=== PATIENT | male | born 1940 | race Caucasian/White ===

== ENCOUNTER 2021-06-01 10:21 | Inpatient (IN) | payer MEDICARE, OTHER ==
[~2021-06-01] VITALS: Ht 170.2 cm; Wt 60.3 kg
[2021-06-01 10:28] VITALS: BP 157/98
[2021-06-01] MEDS ORDERED: CHOLESTEROL PO (10:35)
[2021-06-01] MEDS ORDERED: [UNRECOGNIZED DRUG - OTHER] INH (10:36)
[2021-06-01 10:56] LABS: ABSOLUTE EOSINOPHILS 0.1 thou/uL (0.0-0.7); ABSOLUTE LYMPHOCYTES 1.6 thou/uL (0.8-5.3); ABSOLUTE MONOCYTES 0.6 thou/uL (0.0-1.2); ABSOLUTE NEUTROPHILS 4.1 thou/uL (1.6-8.1); BASOPHILS 0.3 %; EOSINOPHILS 1.2 %; HEMATOCRIT 49.8 % (42.0-52.0); HEMOGLOBIN 16.6 gm/dL (14.0-18.0); MCH 29.3 pg (26.0-34.0); MCHC 33.3 g/dL (28.0-37.0); MONOCYTES 9.3 %; MPV 8.7 fl. (7.2-11.1); NUCLEATED RBCS 0 /100WBC; PLATELET COUNT* 179 thou/uL (150-400); POLYS 64.2 %; RBC 5.65 mil/uL (4.50-6.00); RDW-CV 14.3 % (10.5-14.5); WBC 6.4 thou/uL (4.0-11.0)
[2021-06-01 11:05] LABS: CALCIUM 8.4 mg/dL (8.5-10.1); POTASSIUM 4.3 mmol/L (3.5-5.1)
[2021-06-01 11:17] LABS: ALBUMIN 3.5 g/dL (3.4-5.0); TOTAL BILIRUBIN 0.5 mg/dL (<0.1-1.0); TOTAL PROTEIN 7.6 g/dL (6.4-8.2)
--- NOTE | 2021-06-01 11:19 | EKG ---
[place] [address] ELECTROCARDIOGRAM REPORT Name: ALESSANDRA PATE Room: [facility]#: [id number] Admission: Attend Phys: Discharge: Date of : 38 Date of Service: 06/01/21 1055 Report #: [id number] THIS REPORT FOR: //name// [facility] ED Test Date: 2021-06-01 Test Time: 10:55:46 Pat Name: ALESSANDRA PATE Department: Room: Gender: Training Program Developer: : 1940 Requested By: Bony Cisneros Order Number: [id number] MD: Zenon Brooks Measurements Intervals [place] Rate: 103 P: 86 DC: 174 QRS: 73 QRSD: 103 T: 72 QT: 334 QTc: 437 Interpretive Statements Sinus tachycardia Occasional PACs and PVCs Probable left atrial enlargement Anterior infarct, 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
[2021-06-01] MEDS ORDERED: ATORVASTATIN PO (13:05)
[2021-06-01 15:38] VITALS: BP 136/79
[2021-06-01 16:16] LABS: INFLUENZA A ANTIGEN Negative (Negative); INFLUENZA B ANTIGEN Negative (Negative)
[2021-06-02 01:10] VITALS: BP 134/80
[2021-06-02 01:16] VITALS: BP 138/73
[2021-06-02 05:00] VITALS: BP 122/79
[2021-06-02 07:36] LABS: ABSOLUTE LYMPHOCYTES 0.6 thou/uL (0.8-5.3); ABSOLUTE MONOCYTES 0.1 thou/uL (0.0-1.2); ABSOLUTE NEUTROPHILS 2.8 thou/uL (1.6-8.1); BASOPHILS 0.1 %; HEMATOCRIT 48.7 % (42.0-52.0); HEMOGLOBIN 15.7 gm/dL (14.0-18.0); LYMPHOCYTES 17.5 %; MCH 28.3 pg (26.0-34.0); MCHC 32.2 g/dL (28.0-37.0); MONOCYTES 2.1 %; MPV 9.5 fl. (7.2-11.1); NUCLEATED RBCS 0 /100WBC; PLATELET COUNT* 157 thou/uL (150-400); POLYS 80.3 %; RBC 5.53 mil/uL (4.50-6.00); WBC 3.5 thou/uL (4.0-11.0)
[2021-06-02 07:53] LABS: ALBUMIN 3.1 g/dL (3.4-5.0); CALCIUM 8.6 mg/dL (8.5-10.1); CREATININE 0.9 mg/dL (0.6-1.3); POTASSIUM 4.2 mmol/L (3.5-5.1); TOTAL BILIRUBIN 0.6 mg/dL (<0.1-1.0); TOTAL PROTEIN 6.8 g/dL (6.4-8.2)
[2021-06-02 08:00] VITALS: BP 127/79
[2021-06-02 12:46] VITALS: BP 124/75
[2021-06-02] MEDS ORDERED: LIPITOR 20 MG T20 M1 PO (17:41)
[2021-06-02] MEDS ORDERED: MONTELUKAST SODI4 M1 PO (17:43)
[2021-06-02] MEDS ORDERED: COMBIVENT RESPIM4 GM (17:44)
[2021-06-02 20:00] VITALS: BP 138/95
[2021-06-03] VITALS: BP 117/73
[2021-06-03 04:49] VITALS: BP 122/64
[2021-06-03 06:17] LABS: HEMATOCRIT 48.8 % (42.0-52.0); MCH 28.8 pg (26.0-34.0); MCHC 32.8 g/dL (28.0-37.0); MCV 87.7 fL (80.0-100.0); MPV 9.5 fl. (7.2-11.1); NUCLEATED RBCS 0 /100WBC; PLATELET COUNT* 185 thou/uL (150-400); RBC 5.57 mil/uL (4.50-6.00); RDW-CV 14.2 % (10.5-14.5); WBC 8.4 thou/uL (4.0-11.0)
[2021-06-03 06:32] LABS: ALBUMIN 3.5 g/dL (3.4-5.0); CREATININE 1.1 mg/dL (0.6-1.3); POTASSIUM 4.2 mmol/L (3.5-5.1); TOTAL BILIRUBIN 0.6 mg/dL (<0.1-1.0); TOTAL PROTEIN 7.1 g/dL (6.4-8.2)
[2021-06-03 08:00] VITALS: BP 119/77
[2021-06-03 08:00] LABS: ABSOLUTE LYMPHOCYTES 0.4 thou/uL (0.8-5.3); ABSOLUTE MONOCYTES 0.3 thou/uL (0.0-1.2); ABSOLUTE NEUTROPHILS 7.6 thou/uL (1.6-8.1); PLATELET ESTIMATE ADEQUATE
[2021-06-03 12:00] VITALS: BP 130/78
[2021-06-03 16:00] VITALS: BP 143/71
[2021-06-03 20:30] VITALS: BP 111/78
[2021-06-04 01:00] VITALS: BP 128/76
[2021-06-04 04:30] VITALS: BP 135/77
[2021-06-04 06:54] LABS: ABSOLUTE LYMPHOCYTES 0.5 thou/uL (0.8-5.3); ABSOLUTE MONOCYTES 0.3 thou/uL (0.0-1.2); ABSOLUTE NEUTROPHILS 7.4 thou/uL (1.6-8.1); BASOPHILS 0.1 %; HEMATOCRIT 47.7 % (42.0-52.0); HEMOGLOBIN 15.6 gm/dL (14.0-18.0); LYMPHOCYTES 5.9 %; MCH 28.8 pg (26.0-34.0); MCHC 32.6 g/dL (28.0-37.0); MCV 88.2 fL (80.0-100.0); MONOCYTES 3.4 %; MPV 8.7 fl. (7.2-11.1); NUCLEATED RBCS 0 /100WBC; PLATELET COUNT* 183 thou/uL (150-400); POLYS 90.6 %; RBC 5.42 mil/uL (4.50-6.00); RDW-CV 14.2 % (10.5-14.5); WBC 8.1 thou/uL (4.0-11.0)
[2021-06-04 07:07] LABS: ALBUMIN 3.1 g/dL (3.4-5.0); CALCIUM 10.5 mg/dL (8.5-10.1); CREATININE 1.4 mg/dL (0.6-1.3); POTASSIUM 5.4 mmol/L (3.5-5.1); TOTAL BILIRUBIN 0.5 mg/dL (<0.1-1.0); TOTAL PROTEIN 6.4 g/dL (6.4-8.2)
[2021-06-04 09:40] VITALS: BP 137/78
[2021-06-04 12:00] VITALS: BP 125/75
[2021-06-04] MEDS ORDERED: PROAIR HFA8.5 GM INH (13:48)
[2021-06-04] MEDS ORDERED: PREDNISONE 10 M10 MG PO (13:48)
[2021-06-04 14:02] VITALS: BP 137/78
== END 2021-06-04 15:20 | disposition home or self-care (01) | DRG 189 ==
LOC: M.ERS 10:21 → M.TBA-ER 11:38 → M.ORTHSURG 11:38 → M.2W 06-02 17:29
PROVIDERS: Emergency Medicine Emergency Medical Services; ADMIT Internal Medicine; ATTEND Internal Medicine
DX: J96.01 Acute respiratory failure with hypoxia (principal); E43 Unspecified severe protein-calorie malnutrition; J44.1 Chronic obstructive pulmonary disease with (acute) exacerbation; J44.0 Chronic obstructive pulmonary disease with (acute) lower respiratory infection; J96.02 Acute respiratory failure with hypercapnia; E78.5 Hyperlipidemia, unspecified; Z87.891 Personal history of nicotine dependence; Z83.3 Family history of diabetes mellitus; Z68.20 Body mass index [BMI] 20.0-20.9, adult